=== PATIENT | male | born 1990 | race Caucasian/White ===

== ENCOUNTER 2017-08-14 00:54 | Emergency (ER) | payer OTHER ==
[2017-08-14 07:23] VITALS: BP 138/85
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
== END 2017-08-14 07:24 | disposition home or self-care (01) ==
LOC: ED 00:54
DX: S13.4XXA Sprain of ligaments of cervical spine, initial encounter (principal); V89.2XXA Person injured in unspecified motor-vehicle accident, traffic, initial encounter; Y92.410 Unspecified street and highway as the place of occurrence of the external cause
CPT/HCPCS: 70450; 71250; 72125; 74176; 99282